=== PATIENT | female | born 1970 | race Caucasian/White ===

== ENCOUNTER 2017-05-15 05:48 | Emergency (ER) | payer OTHER ==
[2017-05-15 06:06] VITALS: BP 112/71; BMI 33.5
--- NOTE | 2017-05-15 06:29 | DR.GENAD ---
HPI - PCP Primary Care Physician: CARMINA JUAREZ - Complaint/Symptoms Chief Complaint Doctors Comments: Patient admits to a pain level of 10 but is on pain management. Pain is sharp, low posterior lateral back aggravated by flexion.. Chief Complaint:: C/O HURTING RIGHT SIDE, LOWER BACK, AND STOMACH. STARTED APPROXIMATELY 3 DAYS AGO. PATIENT REPORTS URINE IS DARK AND ODOROUS. PATIENT STATES SHE IS NOT VOIDING MUCH USUAL. - Source History Provided: Patient - Mode of Arrival Mode of Arrival: Ambulatory - Timing Onset of Chief Complaint: 05/12/17 PMH - PMH Past Medical History: Yes Past Medical History: COPD, Coronary Artery Disease, Diabetes, Dyslipidemia, GERD, Renal Disease, Sleep Apnea Past Medical History Comment: CHRONIC LUMBAR BACK PAIN ON LEFT, HIATAL HERNIA Past Surgical History: Yes Surgical History: Appendectomy, Hysterectomy, Tonsillectomy Past Surgical History Comment: CARPAL TUNNEL BILATERALLY; LUMBAR 4-5 SURGERY; HEART CATH 2016 - Family History History of Family Medical Conditions: No - Social History Type of Tobacco Use: Cigarettes How many years tobacco product used: 30 Alcohol Use: None Do you use any recreational Drugs:: No Lives With: Family Lives Where: Home - infectious screening In the last 2 months have you had wt loss of >10#?: NO Have you had fever, night sweats or hemotysis?: No Have you traveled outside the country in the last 6 months?: No Isolation: Standard ROS - Review of Systems Constitutional: Diaphoresis ENTM: No Symptoms Reported Respiratoy: No Symptoms Reported Cardiovascular: No Symptoms Reported Gastrointestinal/Abdominal: No Symptoms Reported Genitourinary: No Symptoms Reported Neurological: No Symptoms Reported Musculoskeletal: No Symptoms Reported Integumentary: No Symptoms Reported Hematologic/Lymphatic: No Symptoms Reported Endocrine: No Symptoms Reported Psychiatric: No Symptoms Reported All Other Systems: Reviewed and Negative PE - Vital Signs Vitals: Temperature 97.9 F Pulse Rate 76 Respiratory Rate 20 Blood Pressure 112/71 O2 Sat by Pulse Oximetry 93 - General Limitations: No Limitations General Appearance: Alert, In No Apparent Distress - Head Head Exam: Normal Inspection - Eyes Eye exam: Normal Appearance, PERRL, EOMI - ENT External Ear Exam: Normal External Inspection TM/Canal Exam: Bilateral Normal Nose Exam: Normal Nose Exam Mouth Exam: Normal Inspection Throat Exam: Normal Inspection - Neck Neck Exam: Normal Inspection, Full ROM - Chest Chest Inspection: Symmetric Chest Wall Rise - Cardiovascular Cardiovascular Exam: Regular Rate - Abdominal Exam Abdominal Exam: Normal Inspection, Normal Bowel Sounds Abdominal Tenderness: negative: RUQ, RLQ, LUQ, LLQ, Epigastrium, Suprapubic, Diffuse, Mild, Moderate, Severe, Other - Extremities Extremities Exam: Normal Inspection, Full ROM - Back Back Exam: Normal Inspection, Full ROM - Neurologic Neurological Exam: Alert, Oriented X3, CN II-XII Intact - Psychiatric Psychiatric Exam: Normal Affect, Normal Mood - Skin Skin Exam: Warm, Dry, Intact Course - Reevaluation 1st: Unchanged ROR - Labs Reviewed Laboratory Results Reviewed?: Yes (UA: negative) Result Diagrams: 05/15/17 06:56 05/15/17 06:56 Laboratory: WBC 7.7 X10^3/uL (3.6-10.0) 05/15/17 06:56 RBC 4.59 X10^6/uL (3.5-5.4) 05/15/17 06:56 Hgb 14.4 g/dL (12.0-16.0) 05/15/17 06:56 Hct 41.2 % (36.0-47.0) 05/15/17 06:56 MCV 89.6 fL (80.0-100.0) 05/15/17 06:56 MCH 31.3 pg (27.0-34.0) 05/15/17 06:56 MCHC 34.9 g/dL (33.0-35.0) 05/15/17 06:56 RDW 12.8 % (11.6-16.5) 05/15/17 06:56 Plt Count 205 X10^3/uL (150.0-450.0) 05/15/17 06:56 MPV 9.2 fL (7.4-11.0) 05/15/17 06:56 Neut % 53.5 % (42.0-75.0) 05/15/17 06:56 Lymph % 34.2 % (21.0-51.0) 05/15/17 06:56 [place] % 7.3 % (0.0-13.0) 05/15/17 06:56 Eos % 4.3 % (0.9-2.9) H 05/15/17 06:56 Baso % 0.7 % (0.2-1.0) 05/15/17 06:56 Neut # 4.1 x10^3/uL (2.2-4.8) 05/15/17 06:56 Lymph # 2.6 X10^3/uL (1.3-2.9) 05/15/17 06:56 [place] # 0.6 x10^3/uL (0.3-0.8) 05/15/17 06:56 Eos # 0.3 x10^3/uL (0.0-0.2) H 05/15/17 06:56 Baso # 0.1 X10^3/uL (0.0-0.1) 05/15/17 06:56 Absolute Nucleated RBC 0.0 /100WBC 05/15/17 06:56 Sodium 142 mmol/L (136-145) 05/15/17 06:56 Corrected Sodium TNP 05/15/17 06:56 Potassium 3.6 mmol/L (3.5-5.1) 05/15/17 06:56 Chloride 107 mmol/L (98-107) 05/15/17 06:56 Carbon Dioxide 26.7 mmol/L (21-32) 05/15/17 06:56 BUN 12 mg/dL (7-18) 05/15/17 06:56 Creatinine 0.75 mg/dL (0.55-1.02) 05/15/17 06:56 Est GFR (MDRD) Af Amer > 60 (>60) 05/15/17 06:56 Est GFR (MDRD) Non-Af > 60 (>60) 05/15/17 06:56 Glucose 108 mg/dL (65-99) H 05/15/17 06:56 Calcium 8.5 mg/dL (8.5-10.1) 05/15/17 06:56 Corrected Calcium 9.1 mg/dL (8.5-10.1) 05/15/17 06:56 Total Bilirubin 0.20 mg/dL (0.2-1.0) 05/15/17 06:56 AST 17 Units/L (15-37) 05/15/17 06:56 ALT 28 Units/L (12-78) 05/15/17 06:56 Alkaline Phosphatase 94 Units/L (46-116) 05/15/17 06:56 C-Reactive Protein 18.20 mg/L (0-3.0) H 05/15/17 06:56 Total Protein 7.1 g/dL (6.4-8.2) 05/15/17 06:56 Albumin 3.2 g/dL (3.4-5.0) L 05/15/17 06:56 Globulin 3.9 g/dL (2.5-4.5) 05/15/17 06:56 Albumin/Globulin Ratio 0.8 Ratio (1.1-2.1) L 05/15/17 06:56 Specimen Type Clean catch urine 05/15/17 06:16 Urine Color Yellow (YELLOW) 05/15/17 06:16 Urine Appearance Hazy (CLEAR) 05/15/17 06:16 Urine pH 5.0 (5.0 - 8.0) 05/15/17 06:16 Ur Specific [place] 1.025 (1.000-1.030) 05/15/17 06:16 Urine Protein 1+ (NEGATIVE) 05/15/17 06:16 Urine Glucose (UA) Negative (NEGATIVE) 05/15/17 06:16 Urine Ketones Negative (NEGATIVE) 05/15/17 06:16 Urine Occult Blood 1+ (NEGATIVE) 05/15/17 06:16 Urine Nitrite Negative (NEGATIVE) 05/15/17 06:16 Urine Bilirubin Negative (NEGATIVE) 05/15/17 06:16 Urine Urobilinogen Normal (NORMAL) 05/15/17 06:16 Ur Leukocyte Esterase Negative (NEGATIVE) 05/15/17 06:16 Urine RBC 2-5 /HPF (NEGATIVE) 05/15/17 06:16 Urine WBC 0-2 /HPF (NEGATIVE) 05/15/17 06:16 Ur Squamous Epith Cells Moderate /HPF (NEGATIVE) 05/15/17 06:16 Urine Bacteria Trace /HPF (NEGATIVE) 05/15/17 06:16 Urine Mucus Few /HPF (NEGATIVE) 05/15/17 06:16 Ur Culture Indicated? No/not indicated 05/15/17 06:16 - XRAY XRAY Interpreted by: Radiologist (Chest: no acute abnormality noted; Abdomen No evidence for acute abdominal pathology identified) - Diagnosis Discharge Problem: Back pain Qualifiers: Back pain location: low back pain Chronicity: chronic Back pain laterality: right Sciatica presence: unspecified whether sciatica present Qualified Code(s) : M54.5 - Low back pain; G89.29 - Other chronic pain - Discharge Plan Condition: Stable - Follow ups/Referrals Follow ups/Referrals: NFD,None [Primary Care Provider] - 3 days - Instructions
[2017-05-15 06:41] LABS: BILIRUBIN,URINE NEGATIVE (NEGATIVE); BLOOD/HEMOGLOBIN,URINE 1+ (NEGATIVE); GLUCOSE, URINE NEGATIVE (NEGATIVE); KETONES,URINE NEGATIVE (NEGATIVE); LEUKOCYTE ESTERASE ,URINE NEGATIVE (NEGATIVE); NITRITES,URINE NEGATIVE (NEGATIVE); PROTEIN,URINE 1+ (NEGATIVE); UROBILINOGEN,URINE NORMAL (NORMAL)
[2017-05-15 06:57] LABS: APPEARANCE,URINE HAZY (CLEAR); BACTERIA,URINE TRACE /HPF (NEGATIVE); COLOR,URINE YELLOW (YELLOW); MUCUS,URINE FEW /HPF (NEGATIVE); SQUAMOUS EPITHELIAL CELL,UR MODERATE /HPF (NEGATIVE)
[2017-05-15 07:09] LABS: BASOPHILS # (AUTO) 0.1 X10^3/uL (0.0-0.1); BASOPHILS % (AUTO) 0.7 % (0.2-1.0); EOSINOPHILS # (AUTO) 0.3 x10^3/uL (0.0-0.2); EOSINOPHILS % (AUTO) 4.3 % (0.9-2.9); HEMATOCRIT 41.2 % (36.0-47.0); HEMOGLOBIN 14.4 g/dL (12.0-16.0); LYMPHOCYTES # (AUTO) 2.6 X10^3/uL (1.3-2.9); LYMPHOCYTES % (AUTO) 34.2 % (21.0-51.0); MEAN CORPUSCULAR HEMOGLOBIN 31.3 pg (27.0-34.0); MEAN CORPUSCULAR HGB CONC 34.9 g/dL (33.0-35.0); MEAN CORPUSCULAR VOLUME 89.6 fL (80.0-100.0); MEAN PLATELET VOLUME 9.2 fL (7.4-11.0); MONOCYTES # (AUTO) 0.6 x10^3/uL (0.3-0.8); MONOCYTES % (AUTO) 7.3 % (0.0-13.0); NEUTROPHILS # (AUTO) 4.1 x10^3/uL (2.2-4.8); NEUTROPHILS % (AUTO) 53.5 % (42.0-75.0); PLATELET COUNT 205 X10^3/uL (150.0-450.0); RED BLOOD COUNT 4.59 X10^6/uL (3.5-5.4); RED CELL DISTRIBUTION WIDTH 12.8 % (11.6-16.5); WHITE BLOOD COUNT 7.7 X10^3/uL (3.6-10.0)
[2017-05-15 07:30] LABS: ALANINE AMINOTRANSFERASE 28 Units/L (12-78); ALBUMIN 3.2 g/dL (3.4-5.0); ALKALINE PHOSPHATASE 94 Units/L (46-116); ASPARTATE AMINO TRANSFERASE 17 Units/L (15-37); BLOOD UREA NITROGEN 12 mg/dL (7-18); CALCIUM 8.5 mg/dL (8.5-10.1); CARBON DIOXIDE 26.7 mmol/L (21-32); CHLORIDE 107 mmol/L (98-107); COR CA(FOR HYPOALB) 9.1 mg/dL (8.5-10.1); CREATININE 0.75 mg/dL (0.55-1.02); GLUCOSE 108 mg/dL (65-99); SODIUM 142 mmol/L (136-145); TOTAL PROTEIN 7.1 g/dL (6.4-8.2); eGFR BLACK RACES > 60 (>60); eGFR NON BLACK RACES > 60 (>60)
--- NOTE | 2017-05-15 07:39 | RAD ---
HISTORY: Abdominal pain Study: Acute abdominal series Comparison: None Findings: The trachea is midline. The cardiac silhouette is unremarkable. The lungs are clear without focal infiltrate or effusion. The bony thorax is unremarkable. Flat plate and upright evaluation of the abdomen demonstrates a normal bowel gas pattern. There are surgical clips in the right lower quadrant.. No pathological soft tissue mass or calcification can be observed. The bony structures are grossly intact. IMPRESSION: 1. No acute cardiopulmonary disease. 2. No evidence for acute abdominal pathology identified. Reported By:
[2017-05-15] MEDS ORDERED: NS 1000 ML 1,000 ML ONE (07:52)
== END 2017-05-15 08:06 | disposition home or self-care (01) ==
LOC: ER 05:48
DX: M54.5 Low back pain (principal); G89.29 Other chronic pain
CPT/HCPCS: 36415; 74022; 80053; 81001; 85025; 86140; 99283